=== PATIENT | male | born 1935 | race Caucasian/White ===

== ENCOUNTER 2017-07-27 10:00 | Day surgery (SDC) | payer MEDICARE ==
[~2017-07-27 10:00] MED LIST: PROPOFOL INJ 200 MG/20 ML VIAL IV ONE
[2017-07-27 13:40] VITALS: BP 135/75
--- NOTE | 2017-07-28 14:26 | Operative Report ---
Operative Report DATE OF SURGERY: 07/27/17 Operative Report: The risks, benefits and alternatives of the procedure are explained to the patient and informed consent was obtained Time out is called Propofol sedation is provided colonoscopy is complete to the cecum all segments are visualized patient tolerated well retroflexion performed EGD done as well the esophagus, stomach and duodenum are evaluated PREOPERATIVE DIAGNOSIS: personal history of polyp. history of polyp POSTOPERATIVE DIAGNOSIS: internal hemorrhoids. possible polyp in the cecum. 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 hiatal hernia OPERATION: colonoscopy with biopsy. EGD with ablation SURGEON: NABILA HORAN ANESTHESIA: LMAC TISSUE REMOVED OR ALTERED: colon specimen is obtained COMPLICATIONS: none ESTIMATED BLOOD LOSS: none INTRAOPERATIVE FINDINGS: as noted above PROCEDURE: patient tolerated well discharge in good condition no post procedure complications are noted discharge date: 07/27/17 discharge diet: normal discharge activity : normal will wait on biopsy follow up colonoscopy in 5 years patient will need a follow up in 2-3 weeks he will call the office or go to ED if there are any other questions
== END 2017-07-27 13:20 | disposition home or self-care (01) ==
LOC: END 10:00
PROVIDERS: ATTEND Internal Medicine Gastroenterology
DX: D12.0 Benign neoplasm of cecum (principal); K62.5 Hemorrhage of anus and rectum; K44.9 Diaphragmatic hernia without obstruction or gangrene; K22.719 Barrett's esophagus with dysplasia, unspecified; I10 Essential (primary) hypertension; Z79.899 Other long term (current) drug therapy; Z79.51 Long term (current) use of inhaled steroids; Z86.010 Personal history of colon polyps
CPT/HCPCS: 43270; 45380; 88305 ×2; J2704; 813